=== PATIENT | female | born 1940 | race Caucasian/White ===

== ENCOUNTER 2018-02-27 11:37 | Emergency (ER) | payer OTHER ==
[2018-02-27 12:40] LABS: Absolute Lymphocytes (CBC) 2.2 K/uL (0.7-4.9); Absolute Monocytes 0.7 K/uL (0.1-1.3); Absolute Neutrophil 4.6 K/uL (1.8-8.0); Basophils % 0.9 % (0-1.3); Eosinophils % 4.4 % (0-4.4); Hematocrit 43.9 % (36.0-45.0); Lymphocytes % 27.8 % (15.3-44.8); MCH 28.6 pg (27.0-35.0); MPV 9.6 fL (7.6-11.3); Monocytes % 9.4 % (3.3-12.3); RBC Red Blood Cell Count 5.04 M/uL (3.86-4.86)
--- NOTE | 2018-02-27 13:40 | EDPHYS ---
Physician Documentation [facility] Name: Terry Villar Age: 77 yrs Sex: Female : 1940 Arrival Date: 02/27/2018 Time: 11:40 Bed 2 Private MD: Madi Lynch V ED Physician Florian Meeks HPI: 02/27 13:49 This 77 yrs old Female presents to ER via Ambulatory with complaints of Chest gs Pain. 13:49 The patient or guardian reports chest pain that is located primarily in the anterior gs chest wall. Onset: today. The pain does not radiate. Associated signs and symptoms: Pertinent negatives: shortness of breath. The chest pain is described as dull. Duration: The patient or guardian reports a single episode, that lasted 5 minute(s). Modifying factors: The symptoms are alleviated by nothing. the symptoms are aggravated by nothing. Severity of pain: At its worst the pain was moderate in the emergency department the pain has resolved. The patient has experienced similar episodes in the past, a few times. Historical: - Allergies: 11:44 Hydrocodone-Acetaminophen; hb 11:44 prefers to take no narcs...make her ill; hb - Home Meds: 11:44 aspirin 81 mg Oral chew [Active]; Atenolol Oral [Active]; Diltiazem Oral [Active]; hb niacin 50 mg Oral tab [Active]; Prilosec Oral [Active]; - PMHx: 11:44 Hypertension; hb - Immunization history:: Adult Immunizations up to date. - Social history:: Smoking status: Patient/guardian denies using tobacco. ROS: 13:49 All other systems are negative. gs Exam: 12:12 ECG was reviewed by the Attending Physician. gs 13:49 Head/Face: Normocephalic, atraumatic. Eyes: Pupils equal round and reactive to light, gs extra-ocular motions intact. Lids and lashes normal. Conjunctiva and sclera are non-icteric and not injected. Cornea within normal limits. Periorbital areas with no swelling, redness, or edema. ENT: Nares patent. No nasal discharge, no septal abnormalities noted. Tympanic membranes are normal and external auditory canals are clear. Oropharynx with no redness, swelling, or masses, exudates, or evidence of obstruction, uvula midline. Mucous membranes moist. Neck: Trachea midline, no thyromegaly or masses palpated, and no cervical lymphadenopathy. Supple, full range of motion without nuchal rigidity, or vertebral point tenderness. No Meningismus. Chest/axilla: Normal chest wall appearance and motion. Nontender with no deformity. No lesions are appreciated. Cardiovascular: Regular rate and rhythm with a normal S1 and S2. No gallops, murmurs, or rubs. Normal PMI, no JVD. No pulse deficits. Respiratory: Lungs have equal breath sounds bilaterally, clear to auscultation and percussion. No rales, rhonchi or wheezes noted. No increased work of breathing, no retractions or nasal flaring. Abdomen/GI: Soft, non-tender, with normal bowel sounds. No distension or tympany. No guarding or rebound. No evidence of tenderness throughout. Back: No spinal tenderness. No costovertebral tenderness. Full range of motion. Skin: Warm, dry with normal turgor. Normal color with no rashes, no lesions, and no evidence of cellulitis. MS/ Extremity: Pulses equal, no cyanosis. Neurovascular intact. Full, normal range of motion. Neuro: Awake and alert, GCS 15, oriented to person, place, time, and situation. Cranial nerves II-XII grossly intact. Motor strength 5/5 in all extremities. Sensory grossly intact. Cerebellar exam normal. Normal gait. 13:49 Constitutional: The patient appears alert, awake. Vital Signs: 11:45 BP 162 / 69; Pulse 78; Resp 16; Temp 97.1; Pulse Ox 97% on R/A; Weight 93.89 kg; Height hb 5 ft. 5 in. (165.10 cm); Pain 3/10; 13:44 BP 161 / 71; Pulse 81; Resp 16; Temp 97.1; Pulse Ox 100% on R/A; la1 13:56 BP 160 / 74; Pulse 82; Resp 19; Pulse Ox 100% on R/A; la1 11:45 Body Mass Index 34.45 (93.89 kg, 165.10 cm) hb MDM: 12:15 Patient medically screened. gs 13:49 Differential diagnosis: acute myocardial infarction, chest wall pain, congestive heart gs failure pneumonia. Data reviewed: vital signs, nurses notes, and as a result, I will discharge patient. 13:49 Counseling: I had a detailed discussion with the patient and/or guardian regarding: lab results, radiology results, the need for outpatient follow up, a rn mental health. 02/27 12:23 Order name: Basic Metabolic Panel; Complete Time: 12:59 02/27 12:23 Order name: CBC with Diff; Complete Time: 12:59 02/27 12:04 Order name: EKG; Complete Time: 12:04 [facility] 02/27 12:04 Order name: EKG - Nurse/Tech; Complete Time: 12:04 [facility] 02/27 12:23 Order name: Troponin (emerg Dept Use Only); Complete Time: 12:59 02/27 12:23 Order name: XRAY Chest (1 view) 02/27 13:39 Interpretation: No acute disease except: cardiomegally. 02/27 12:23 Order name: Cardiac monitoring; Complete Time: 12:26 02/27 12:23 Order name: IV Saline Lock; Complete Time: 12: 02/27 12:23 Order name: Labs collected and sent; Complete Time: 12: 02/27 12:23 Order name: O2 Per Protocol; Complete Time: 12: 02/27 12:23 Order name: O2 Sat Monitoring; Complete Time: 12: EC:12 Rate is 73 beats/min. Rhythm is regular. UT interval is prolonged. QRS interval is gs normal. T waves are Normal. No ST changes noted. Clinical impression: Abnormal EKG without significant change and 1st degree heart block. Interpreted by me. Administered Medications: No medications were administered Disposition: 02/27/18 13:40 Discharged to Home. Impression: Chest pain, unspecified. - Condition is Stable. - Discharge Instructions: Nonspecific Chest Pain. - Medication Reconciliation Form, Thank You Letter, Antibiotic Education, Prescription Opioid Use form. - Follow up: Private Physician; When: 2 - 3 days; Reason: Re-evaluation by your physician. - Problem is new. - Symptoms are resolved. Signatures: Dispatcher [employer] EDMS Jacek Hicks RN RN la1 Shabana Hughes RN RN Florian Meeks MD MD
--- NOTE | 2018-02-27 13:40 | ER ---
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 Pain radiated to right side of neck. Denies nausea/SOB/cough. Transition of care: patient was not received from another setting of care. Onset of symptoms was February 27, 2018. Initial Sepsis Screen: Does the patient meet any 2 criteria? No. Patient's initial sepsis screen is negative. Does the patient have a suspected source of infection? No. Patient's initial sepsis screen is negative. Care prior to arrival: None. 11:42 Method Of Arrival: Ambulatory hb 11:42 Acuity: BENITO 3 hb Historical: - Allergies: 11:44 Hydrocodone-Acetaminophen; hb 11:44 prefers to take no narcs...make her ill; hb - Home Meds: 11:44 aspirin 81 mg Oral chew [Active]; Atenolol Oral [Active]; Diltiazem Oral [Active]; hb niacin 50 mg Oral tab [Active]; Prilosec Oral [Active]; - PMHx: 11:44 Hypertension; hb - Immunization history:: Adult Immunizations up to date. - Social history:: Smoking status: Patient/guardian denies using tobacco. Screenin:03 Abuse screen: Denies threats or abuse. Nutritional screening: No deficits noted. la1 Tuberculosis screening: No symptoms or risk factors identified. Fall Risk None identified. Assessment: 12:01 General: Appears in no apparent distress. Behavior is calm, cooperative. Pain: Denies la1 pain. Pain: Complains of pain in Pt reports pain that started 30 minutes ago and lasted 5 minutes, pain was sharp, midsternal, and radiated to the ride side of her neck. Neuro: Level of Consciousness is awake, alert, obeys commands, Oriented to person, place, time, situation. Cardiovascular: Heart tones S1 S2 present Capillary refill < 3 seconds Patient's skin is warm and dry. Rhythm is sinus rhythm with 1st degree heart block. Respiratory: Airway is patent Respiratory effort is even, unlabored, Respiratory pattern is regular, symmetrical, Breath sounds are clear bilaterally. GI: No signs and/or symptoms were reported involving the gastrointestinal system. : No signs and/or symptoms were reported regarding the genitourinary system. Vital Signs: 11:45 BP 162 / 69; Pulse 78; Resp 16; Temp 97.1; Pulse Ox 97% on R/A; Weight 93.89 kg; Height hb 5 ft. 5 in. (165.10 cm); Pain 3/10; 13:44 BP 161 / 71; Pulse 81; Resp 16; Temp 97.1; Pulse Ox 100% on R/A; la1 13:56 BP 160 / 74; Pulse 82; Resp 19; Pulse Ox 100% on R/A; la1 11:45 Body Mass Index 34.45 (93.89 kg, 165.10 cm) hb ED Course: 11:40 Patient arrived in ED. rg4 11:40 Madi Lynch MD is Private Physician. rg4 11:44 Triage completed. hb 11:45 Arm band placed on right wrist. hb 11:46 Jacek Hicks, EDGAR is Primary Nurse. la1 11:47 Florian Meeks MD is Attending Physician. gs 11:58 Initial lab(s) drawn, by me, sent to lab. Inserted saline lock: 22 gauge in left hj antecubital area, using aseptic technique. Blood collected. 12:03 Placed in gown. Bed in low position. Call light in reach. director of marketing operations on. Pulse ox la1 on. NIBP on. 12:03 No provider procedures requiring assistance completed. Patient maintains SpO2 la1 saturation greater than 95% on room air. 13:13 X-ray completed. Portable x-ray completed in exam room. Patient tolerated procedure la2 well. 13:16 XRAY Chest (1 view) In Process Unspecified. EDMS 13:57 IV discontinued, intact, bleeding controlled, No redness/swelling at site. Pressure la1 dressing applied. Administered Medications: No medications were administered Outcome: 13:40 Discharge ordered by . gs 13:57 Discharged to home ambulatory. la1 13:57 Condition: stable 13:57 Discharge instructions given to patient, Instructed on discharge instructions, follow up and referral plans. medication usage, Demonstrated understanding of instructions, follow-up care. 13:57 Patient left the ED. la1 Signatures: Dispatcher [employer] EDMS Jacek Hicks RN RN la1 Gautam Koenig RN RN hj Baxter, Heather, RN RN hb Garcia, Rubi rg4 Florian Meeks MD MD Kaleigh Skaggs la2
[2018-02-27 14:10] VITALS: TEMP 97.1
[2018-02-27 14:11] VITALS: O2SAT 100
[2018-02-27 14:12] VITALS: BP 160/74
--- NOTE | 2018-02-27 15:57 | RAD REPORT ---
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 COMPARISON: March 2012 TECHNIQUE: AP portable chest image was obtained 1312 hours . FINDINGS: No peripheral mass or consolidation. No significant or failure finding. Left base assessme nt is limited. Heart and vasculature are normal. No measurable pleural effusion and no pneumothorax. No gross bony abnormality seen. No acute aortic findings suspected. IMPRESSION: No acute cardiopulmonary process. Left lung base assessment is limited.
--- NOTE | 2018-02-28 07:18 | EKG ---
Test Date: 2018-02-27 Test Time: 11:51:42 Thermodynamic Physicist: LA MEASUREMENT RESULTS: Intervals: Rate: 73 MA: 210 QRSD: 100 QT: 422 QTc: 464 [place]: P: 53 MA: 210 QRS: 14 T: 41 INTERPRETIVE STATEMENTS: Sinus rhythm with 1st degree AV block Otherwise normal ECG Compared to ECG 01/31/2013 15:22:20 T-wave abnormality no longer present Prolonged QT interval no longer present Electronically Signed On 02-28-18 07:17:32 CDT by Federico Julian
== END 2018-02-27 13:57 | disposition home or self-care (01) ==
LOC: ER 11:37
DX: R07.9 Chest pain, unspecified (principal); I10 Essential (primary) hypertension; Z79.82 Long term (current) use of aspirin; Z88.5 Allergy status to narcotic agent
CPT/HCPCS: 36415; 71045; 80048; 84484; 85025; 93005; 99285

== ENCOUNTER 2018-11-21 08:54 | Day surgery (SDC) | payer OTHER ==
[2018-11-21 09:14] LABS: Absolute Lymphocytes (CBC) 1.5 K/uL (0.7-4.9); Absolute Monocytes 0.5 K/uL (0.1-1.3); Absolute Neutrophil 3.5 K/uL (1.8-8.0); Basophils % 0.6 % (0-1.3); Eosinophils % 4.8 % (0-4.4); Hematocrit 44.7 % (36.0-45.0); Lymphocytes % 25.4 % (15.3-44.8); MPV 9.6 fL (7.6-11.3); Monocytes % 8.6 % (3.3-12.3); RBC Red Blood Cell Count 5.11 M/uL (3.86-4.86)
[2018-11-21 09:28] LABS: Potassium 3.8 mmol/L (3.5-5.1)
--- NOTE | 2018-11-21 09:40 | RAD REPORT ---
EXAM DESCRIPTION: Bridgett Le (2 Views)11/21/2018 8:44 am CLINICAL HISTORY: Preop COMPARISON: January 2018 FINDINGS: The lungs appear clear of acute infiltrate. The heart is mildly enlarged IMPRESSION: No acute abnormalities displayed
[2018-11-21] MEDS ORDERED: Ringers Lactate 1,000 ML IV ONE ×2 (10:10→10:21)
[2018-11-21] MEDS ORDERED: MIDAZOLAM HCL 2 MG/2 ML INJ ONE (10:38)
[2018-11-21] MEDS ORDERED: FENTANYL CITR 100 MCG/2 ML ONE (10:51)
[2018-11-21] MEDS ORDERED: PROPOFOL 200 MG/20 ML VIAL IV ONE (10:51)
[2018-11-21] MEDS ORDERED: ONDANSETRON 4 MG/2 ML VIAL ONE (10:52)
[2018-11-21] MEDS ORDERED: LIDOCAINE 1% MPF 2 ML AMPULE ONE (10:52)
[2018-11-21] MEDS ORDERED: BUPIVACAINE 0.5% PF 10 ML VIAL ONE (10:52)
[2018-11-21] MEDS ORDERED: CEFAZOLIN 1GM (PREMIX IV) 1 GM/50 ML BAG ONE (11:01)
--- NOTE | 2018-11-21 11:23 | P.BOP ---
Preoperative diagnosis: right first medial toe ulcerated mass 2.5 x 2.5 cm Postoperative diagnosis: same Primary procedure: Wide excision of right first medial toe ulcerated mass 2.5 x 2.5 cm Estimated blood loss: <5cc Specimen: right first medial toe ulcerated mass Findings: right first medial toe ulcerated mass 2.5 x 2.5 cm mucous secretion Anesthesia: MAC Complications: None Transferred to: Recovery Room Condition: Good
--- NOTE | 2018-11-21 11:43 | EKG ---
Test Date: 2018-11-21 Test Time: 08:37:14 Devops Engineer: KATH MEASUREMENT RESULTS: Intervals: Rate: 56 KS: 236 QRSD: 98 QT: 488 QTc: 470 [place]: P: 65 KS: 236 QRS: 35 T: 133 INTERPRETIVE STATEMENTS: Sinus bradycardia with 1st degree AV block Nonspecific T wave abnormality Prolonged QT Abnormal ECG Compared to ECG 02/27/2018 11:51:42 T-wave abnormality now present Prolonged QT interval now present Sinus rhythm no longer present Electronically Signed On 11-21-18 11:42:42 FINANCIAL REPORTING CONSULTANT by Darek Chapman
[2018-11-21] MEDS ORDERED: KETOROLAC 30 MG/ML INJ ONE (12:32)
[2018-11-21 13:47] VITALS: TEMP 96.6
[2018-11-21 13:48] VITALS: BP 131/58; O2SAT 95
--- NOTE | 2018-11-21 22:19 | OP ---
Date of Procedure: 11/21/2018 Surgeon: Gautam Fong MD Preoperative Diagnosis: Right first medial toe ulcerated mass, 2.5 x 2.5 cm. Postoperative Diagnosis: Right first medial toe ulcerated mass, 2.5 x 2.5 cm. Procedure: Wide excision of right medial toe ulcerative mass, 2.5 x 2.5 cm. Estimated Blood Loss: Less than 5 cc. Specimen: Right first medial toe ulcerative mass. Findings: Mucus producing mass, ulcerated on the right first medial area, bone is not involved. Anesthesia: MAC plus local. Indications: This is a case of a 78-year-old patient, who comes to us with a mass in the first toe, increasing in size. It has become ulcerated. She was told in the past, she has a mucous mass in thomas t region, needs to be excised, now she took time to have it excised since it is getting bigger and mo re tender. The benefits, alternatives, and risks of excision were fully explained, which include but are not limited to infection, bleeding, damage to adjacent structures, anesthesia complication, nonh ealing wound, LA, and even . She also understands this may not relieve her symptoms. She might need more than one surgical intervention. She may require wound care. The area of concern was marlene beatriz by me and the patient in the holding room. Description Of Procedure: The patient was brought to the operating room, placed in supine position. Anesthesia was given without complication. The right foot was prepped and draped in a sterile fashi on. Local anesthesia was applied after time-out was called. After that, I proceeded to make a wide excision of that mass, goes all way down to tendon but does not expose bone. The mass was then compl etely excised. This is just impossible to close, this is too wide, so we proceeded an irrigate the a warren and packed with wet-to-dry dressing. We are going to let that close by secondary intention. The patient tolerated the procedure well. The patient was sent to recovery in stable condition. Disposition: Home. Activity: As tolerated. No heavy lifting. Followup: Follow up in my office in 1 week. Call for appointment [phone]. A wet-to-dry to the right medial toe daily or she can also have the option of Bactroban twice a day a nd keep the area covered with sterile dressings. 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 Medications: Include a Bactroban and also she requests, specifically Toradol by mouth since the hydr ocodone and some other narcotics make her sick, nausea and vomiting. She tried Toradol before, she h as no allergies to it and she wants that again. YAKELNI/DELTA Voice ID: [id number] Report ID: [id number]
== END 2018-11-21 13:14 | disposition home or self-care (01) ==
LOC: OR 08:54
PROVIDERS: ATTEND Surgery
PROC: 0JBQ0ZZ Excision of Right Foot Subcutaneous Tissue and Fascia, Open Approach (ICD-10-PCS; principal; 2018-11-21 10:30)
DX: R22.41 Localized swelling, mass and lump, right lower limb (principal); I10 Essential (primary) hypertension; K21.9 Gastro-esophageal reflux disease without esophagitis; Z88.5 Allergy status to narcotic agent; Z86.73 Personal history of transient ischemic attack (TIA), and cerebral infarction without residual deficits; Z87.891 Personal history of nicotine dependence; Z80.0 Family history of malignant neoplasm of digestive organs; Z83.3 Family history of diabetes mellitus; Z82.49 Family history of ischemic heart disease and other diseases of the circulatory system
CPT/HCPCS: 11423; 36415; 71046; 80048; 85025; 88304; 93005; J0690; J2001; J2250; J2405; J2704; J3010; 88305

== ENCOUNTER 2021-09-22 19:24 | Emergency (ER) | payer OTHER, SELFPAY ==
--- OUTSIDE RECORDS SUMMARY | 2021-09-22 19:26 | XMS REPORT | Continuity of Care Document ---
:1940 Author Organization [facility] t Address 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 [facility] Allergies, Adverse Reactions, Alerts Allergy Allergy Status Severity Reaction(s) Onset Inactive Treating Comm ents Source Name Type Date Date Clinician Demerol Adverse Active Info Not [facility] Reaction Available [facility] ent [facility] Darvon Adverse Active Info Not [facility] Reaction Available [facility] ent [facility] Medications Ordered Filled Start Stop Current Ordering Indication Dosage Frequency Signature Comments Components Source Medication Medication Date Date Medication? Clinician (SIG) Name Name Diltiazem Diltiazem Yes Toni [address] [facility] CD CD 07-05 [place] [facility] - 00:[facility]: [facility] 00 [facility] Clinics Aspir-81 Aspir-81 2017-0 Yes Toni [address] [facility] 07-05 [place] [facility] - [facility]: [facility] 00 [facility]ics Atenolol Atenolol Yes Toni [address] [facility] 07-05 [place] [facility] - [facility]: [facility] 00 [facility] Potassium Potassium Yes Toni [address] [facility] Gluconate Gluconate [place] [facility] Clinics Prilosec Prilosec Yes Toni as [facility] [place] directed [facility] Clinics Calcium Calcium Yes Toni not [facility] [place] defined [facility] Cartia XT Cartia XT Yes Toni TAKE [address] [facility] [place] CAPSULE BY [facility] - MOUTH ONCE Memoria DAILY [facility] ent [facility] Anastrozole Anastrozole Yes Toni [address] [facility] [place] [facility] Procedures This patient has no known procedures. Encounters Start End Encounter Admission Attending Care Care Encounter Source Date/Time Date/Time Type Type Clinicians Facility Department ID 2020-03-21 2020-03-21 Outpatient Irwin Summers [id number] [facility] 09:00:00 09:00[facility]00 [facility] Results This patient has no known results.
[2021-09-22] MEDS ORDERED: NA CHLORIDE 0.9% 1,000 ML ONE (22:03)
[2021-09-22] MEDS ORDERED: DICYCLOMINE HCL 20 MG/2 ML AMP IM ONE (22:03)
[2021-09-22] MEDS ORDERED: ONDANSETRON 4 MG/2 ML VIAL ONE (22:03)
[2021-09-22] MEDS ORDERED: FAMOTIDINE 20 MG/2 ML VIAL IV ONE (22:28)
[2021-09-22 22:33] LABS: Albumin 3.7 g/dL (3.4-5.0); Bilirubin Direct 0.2 mg/dL (0-0.2); Bilirubin Total 0.6 mg/dL (0.2-1.0); Potassium 3.7 mmol/L (3.5-5.1); Protein, Total 7.7 g/dL (6.4-8.2)
[2021-09-22 22:37] LABS: Absolute Lymphocytes (CBC) 0.5 K/uL (0.7-4.9); Basophils % 0.2 % (0-1.3); Hematocrit 43.5 % (36.0-45.0); Lymphocytes % 2.8 % (15.3-44.8); MPV 9.2 fL (7.6-11.3); RBC Red Blood Cell Count 4.95 M/uL (3.86-4.86)
[2021-09-22 23:41] LABS: Blood Morphology Comment NOT SEEN (NOT SEEN); Platelet Estimate ADEQ
--- NOTE | 2021-09-23 00:23 | EDPHYS ---
Physician Documentation [facility] Name: Terry Villar Age: 81 yrs Sex: Female : 1940 Arrival Date: 09/22/2021 Time: 19:27 Bed 2 Private MD: ED Physician Graham Patel HPI: 09/22 22:35 This 81 yrs old Female presents to ER via Wheelchair with complaints of Nausea/Vomiting.jr8 22:35 This is a 81-year-old female patient that presented to the emergency room with sudden jr8 onset of nausea vomiting couple hours prior to arrival. Patient stated that she has had multiple episodes of vomiting since then. Also complains of upper abdominal cramping. Denies any fever or diarrhea at this time. Has been stated that they ate the same thing tonight and then he feels fine. Denies any other sick contacts.. Historical: - Allergies: 20:00 Hydrocodone-Acetaminophen; ld1 20:00 prefers to take no narcs...make her ill; ld1 - Home Meds: 20:00 aspirin 81 mg Oral chew [Active]; niacin 50 mg Oral tab [Active]; Prilosec Oral ld1 [Active]; 22:48 atenolol 50 mg oral tab 1 tab once daily [Active]; diltiazem HCl 240 mg oral CDER 1 cap df1 once daily [Active]; anastrozole 1 mg oral tab 1 tab once daily [Active]; - PMHx: 20:00 Hypertension; Cancer; ld1 22:48 Hypothyroidism; shingles; df1 - PSHx: 20:00 Appendectomy; ld1 22:48 bilateral knee replacement; Total abdominal hysterectomy; masectomy; df1 - Immunization history:: Adult Immunizations up to date, Client reports receiving the 2nd dose of the Covid vaccine. - Social history:: Smoking status: Patient denies any tobacco usage or history of. Patient/guardian denies using alcohol. ROS: 22:35 Eyes: Negative for injury, pain, redness, and discharge, ENT: Negative for injury, jr8 pain, and discharge, Neck: Negative for injury, pain, and swelling, Cardiovascular: Negative for chest pain, palpitations, and edema, Respiratory: Negative for shortness of breath, cough, wheezing, and pleuritic chest pain, Back: Negative for injury and pain, MS/Extremity: Negative for injury and deformity, Skin: Negative for injury, rash, and discoloration, Neuro: Negative for headache, weakness, numbness, tingling, and seizure. 22:35 Abdomen/GI: Positive for abdominal pain, nausea and vomiting, Negative for diarrhea, abdominal distension, hematemesis, black/tarry stool, rectal pain, rectal bleeding, bowel incontinence, flatulence. Exam: 22:35 Cardiovascular: Regular rate and rhythm with a normal S1 and S2. No gallops, murmurs, jr8 or rubs. Normal PMI, no JVD. No pulse deficits. Respiratory: Lungs have equal breath sounds bilaterally, clear to auscultation and percussion. No rales, rhonchi or wheezes noted. No increased work of breathing, no retractions or nasal flaring. Abdomen/GI: Soft, non-tender, with normal bowel sounds. No distension or tympany. No guarding or rebound. No evidence of tenderness throughout. Back: No spinal tenderness. No costovertebral tenderness. Full range of motion. Skin: Warm, dry with normal turgor. Normal color with no rashes, no lesions, and no evidence of cellulitis. MS/ Extremity: Pulses equal, no cyanosis. Neurovascular intact. Full, normal range of motion. Neuro: Awake and alert, GCS 15, oriented to person, place, time, and situation. Cranial nerves II-XII grossly intact. Motor strength 5/5 in all extremities. Sensory grossly intact. 22:35 Constitutional: The patient appears alert, awake, obviously ill, uncomfortable. Vital Signs: 19:58 BP 146 / 118; Pulse 86; Resp 18; Temp 98.3(TE); Pulse Ox 97% on R/A; Weight 98.43 kg; ld1 Height 5 ft. 5 in. (165.10 cm); Pain 0/10; 23:41 Pulse 83; Resp 16; Pulse Ox 96% on R/A; tw5 09/23 00:00 BP 135 / 95; Pulse 86; Resp 18; Pulse Ox 100% on R/A; df1 09/22 19:58 Body Mass Index 36.11 (98.43 kg, 165.10 cm) ld1 MDM: 09/22 21:48 Patient medically screened. jr8 09/23 00:20 Data reviewed: vital signs, nurses notes, lab test result(s), radiologic studies, CT jr8 scan. Data interpreted: Pulse oximetry: on room air is 96 %. Interpretation: normal. Counseling: I had a detailed discussion with the patient and/or guardian regarding: the historical points, exam findings, and any diagnostic results supporting the discharge/admit diagnosis, lab results, radiology results, the need for outpatient follow up, a family practitioner, to return to the emergency department if symptoms worsen or persist or if there are any questions or concerns that arise at home. Response to treatment: the patient's symptoms have resolved after treatment. ED course: Reevaluated patient after having nausea medicine. Patient has had no more episodes of nausea or vomiting. Able to tolerate p.o. fluids at this time. Reexamination of her abdomen does not show any acute abdominal pain or tenderness at this time. Hemodynamically stable otherwise. Recommended close follow-up with her primary care and if she were to have any change in symptoms or abdominal pain to immediately come back for further evaluation. Patient good with this and will follow up or come back if needed.. 09/22 21:57 Order name: Basic Metabolic Panel; Complete Time: 22:37 jr8 09/22 21:57 Order name: CBC with Diff; Complete Time: 23:50 jr8 09/22 21:57 Order name: Hepatic Function; Complete Time: 22:37 jr8 09/22 21:57 Order name: Lipase; Complete Time: 22:37 jr8 09/22 22:17 Order name: CT Abd/Pelvis - IV Contrast Only [facility] 09/22 22:39 Order name: Manual Differential; Complete Time: 23:50 EDMS 09/22 21:57 Order name: IV Saline Lock; Complete Time: 22:01 jr8 09/22 21:57 Order name: Labs collected and sent; Complete Time: 22:01 jr8 09/22 21:57 Order name: EKG; Complete Time: 21:58 jr8 09/22 21:57 Order name: EKG - Nurse/Tech; Complete Time: 22:48 jr8 Administered Medications: 09/22 22:12 Drug: Zofran (Ondansetron) 4 mg Route: IVP; Site: right antecubital; df1 09/23 00:43 Follow up: Response: Nausea is decreased df1 09/22 22:12 Drug: Bentyl (dicyclomine) 20 mg Route: IM; Site: right gluteus; df1 09/23 00:43 Follow up: Response: Pain is decreased df1 09/22 22:12 Drug: NS 0.9% 1000 ml Route: IV; Rate: 1000 ml; Site: right antecubital; df1 09/23 00:43 Follow up: IV Status: Completed infusion; IV Intake: 1000ml df1 09/22 22:47 Drug: Pepcid (famotidine) 20 mg Route: IVP; Site: right antecubital; df1 09/23 01:04 Follow up: Response: No adverse reaction tw5 Disposition Summary: 09/23/21 00:22 Discharge Ordered Location: Home jr8 Problem: new jr8 Symptoms: are resolved jr8 Condition: Stable jr8 Diagnosis - Vomiting jr8 Followup: jr8 - With: Private Physician - When: 2 - 3 days - Reason: Recheck today's complaints, Continuance of care, Re-evaluation by your physician Discharge Instructions: - Discharge Summary Sheet jr8 - Vomiting, Adult jr8 Forms: - Medication Reconciliation Form jr8 - Thank You Letter jr8 - Antibiotic Education jr8 - Prescription Opioid Use jr8 Prescriptions: - Zofran 4 mg Oral Tablet - take 1 tablet by ORAL route every 12 hours As needed; 20 tablet; Refills: 0, jr8 Product Selection Permitted Addendum: 09/24/2021 09:23 Co-signature as Attending Physician, Graham Patel MD I agree with the assessment and c gore plan of care. Signatures: Dispatcher [employer] Graham Begum MD MD cha Roszak, Josh, PA PA jr8 Adelaida Doe, RN RN ld1 Jackie Gregory df1 Neisha Najera tw5 Corrections: (The following items were deleted from the chart) 09/22 20:01 20:00 PMHx: Cancer in situ of urinary bladder; ld1 ld1 22:50 20:00 Home Meds: Atenolol Oral; ld1 df1 22:50 20:00 Home Meds: Diltiazem Oral; ld1 df1
--- NOTE | 2021-09-23 00:23 | ER ---
Nurse's Notes [facility] Name: Terry Villar Age: 81 yrs Sex: Female : 1940 Arrival Date: 09/22/2021 Time: 19:27 Bed 2 Private MD: Diagnosis: Vomiting Presentation: 09/22 19:58 Chief complaint: Patient states: About two hours ago I started vomiting and feeling ld1 very queasy. Coronavirus screen: At this time, the client does not indicate any symptoms associated with coronavirus-19. Ebola Screen: No symptoms or risks identified at this time. Initial Sepsis Screen: Does the patient meet any 2 criteria? No. Patient's initial sepsis screen is negative. Does the patient have a suspected source of infection? No. Patient's initial sepsis screen is negative. Risk Assessment: Do you want to hurt yourself or someone else? Patient reports no desire to harm self or others. Onset of symptoms was September 22, 2021. 19:58 Method Of Arrival: Wheelchair ld1 19:58 Acuity: BENITO 3 ld1 Triage Assessment: 20:00 General: Appears in no apparent distress. comfortable, Behavior is calm, cooperative, ld1 appropriate for age. Pain: Denies pain. EENT: No signs and/or symptoms were reported regarding the EENT system. Neuro: Level of Consciousness is awake, alert, obeys commands, Oriented to person, place, time, situation, Appropriate for age. Cardiovascular: Capillary refill < 3 seconds Patient's skin is warm and dry. Respiratory: Airway is patent Respiratory effort is even, unlabored, Respiratory pattern is regular, symmetrical. GI: Abdomen is round non-distended. : No signs and/or symptoms were reported regarding the genitourinary system. Derm: No signs and/or symptoms reported regarding the dermatologic system. Musculoskeletal: No signs and/or symptoms reported regarding the musculoskeletal system. Historical: - Allergies: 20:00 Hydrocodone-Acetaminophen; ld1 20:00 prefers to take no narcs...make her ill; ld1 - Home Meds: 20:00 aspirin 81 mg Oral chew [Active]; niacin 50 mg Oral tab [Active]; Prilosec Oral ld1 [Active]; 22:48 atenolol 50 mg oral tab 1 tab once daily [Active]; diltiazem HCl 240 mg oral CDER 1 cap df1 once daily [Active]; anastrozole 1 mg oral tab 1 tab once daily [Active]; - PMHx: 20:00 Hypertension; Cancer; ld1 22:48 Hypothyroidism; shingles; df1 - PSHx: 20:00 Appendectomy; ld1 22:48 bilateral knee replacement; Total abdominal hysterectomy; masectomy; df1 - Immunization history:: Adult Immunizations up to date, Client reports receiving the 2nd dose of the Covid vaccine. - Social history:: Smoking status: Patient denies any tobacco usage or history of. Patient/guardian denies using alcohol. Screenin:50 Abuse screen: Denies threats or abuse. Nutritional screening: No deficits noted. df1 Tuberculosis screening: No symptoms or risk factors identified. Fall Risk None identified. Assessment: 23:41 General: Patient given warm blanket and pillow. lights turned off per patient request tw5 for comfort. . Neuro: Level of Consciousness is awake, alert, obeys commands. Respiratory: Airway is patent Trachea midline Respiratory effort is even, unlabored. Vital Signs: 19:58 BP 146 / 118; Pulse 86; Resp 18; Temp 98.3(TE); Pulse Ox 97% on R/A; Weight 98.43 kg; ld1 Height 5 ft. 5 in. (165.10 cm); Pain 0/10; 23:41 Pulse 83; Resp 16; Pulse Ox 96% on R/A; tw5 09/23 00:00 BP 135 / 95; Pulse 86; Resp 18; Pulse Ox 100% on R/A; df1 09/22 19:58 Body Mass Index 36.11 (98.43 kg, 165.10 cm) ld1 ED Course: 09/22 19:27 Patient arrived in ED. bp1 20:00 Triage completed. ld1 20:00 Arm band placed on right wrist. ld1 21:39 Jackie Gregory is Primary Nurse. df1 21:48 Chago Powell PA is PHCP. jr8 21:48 Graham Patel MD is Attending Physician. jr8 22:01 Basic Metabolic Panel Sent. df1 22:01 CBC with Diff Sent. df1 22:01 Hepatic Function Sent. df1 22:01 Lipase Sent. df1 22:01 Inserted saline lock: 20 gauge in right antecubital area, using aseptic technique. df1 22:47 CT Abd/Pelvis - IV Contrast Only Sent. df1 22:50 Patient has correct armband on for positive identification. Placed in gown. Bed in low df1 position. Call light in reach. Side rails up X 1. Adult w/ patient. Pulse ox on. NIBP on. 22:50 No provider procedures requiring assistance completed. df1 23:03 CT Abd/Pelvis - IV Contrast Only In Process Unspecified. EDMS 09/23 00:42 IV discontinued, intact, bleeding controlled, No redness/swelling at site. Pressure df1 dressing applied. Administered Medications: 09/22 22:12 Drug: Zofran (Ondansetron) 4 mg Route: IVP; Site: right antecubital; df1 09/23 00:43 Follow up: Response: Nausea is decreased df1 09/22 22:12 Drug: Bentyl (dicyclomine) 20 mg Route: IM; Site: right gluteus; df1 09/23 00:43 Follow up: Response: Pain is decreased df1 09/22 22:12 Drug: NS 0.9% 1000 ml Route: IV; Rate: 1000 ml; Site: right antecubital; df1 09/23 00:43 Follow up: IV Status: Completed infusion; IV Intake: 1000ml df1 09/22 22:47 Drug: Pepcid (famotidine) 20 mg Route: IVP; Site: right antecubital; df1 09/23 01:04 Follow up: Response: No adverse reaction tw5 Intake: 00:43 IV: 1000ml; Total: 1000ml. df1 Outcome: 00:22 Discharge ordered by MD. alford 00:42 Discharged to home ambulatory. df1 00:42 Condition: stable 00:42 Discharge instructions given to patient, Instructed on discharge instructions, follow up and referral plans. medication usage, Demonstrated understanding of instructions, follow-up care, medications, Prescriptions given X 1. 01:04 Patient left the ED. tw5 Signatures: Dispatcher [employer] EDMS Chago Powell PA PA jr8 Cuca Aguilar Lauren, RN RN [email or web address] Jackie Gregory df1 Neisha Najera tw5 Corrections: (The following items were deleted from the chart) 09/22 20:01 20:00 PMHx: Cancer in situ of urinary bladder; ld1 ld1 22:50 20:00 Home Meds: Atenolol Oral; ld1 df1 22:50 20:00 Home Meds: Diltiazem Oral; ld1 df1
[2021-09-23 01:12] VITALS: TEMP 98.3
[2021-09-23 01:14] VITALS: BP 135/95; O2SAT 100
--- NOTE | 2021-09-23 11:23 | RAD REPORT ---
EXAM DESCRIPTION: CT - Abdomen Pelvis W Contrast - 09/23/2021 6:14 am CLINICAL HISTORY: 81 years, Female, ABD PAIN COMPARISON: None. TECHNIQUE: Contrast-enhanced images of the abdomen and pelvis were performed utilizing 5 mm slice th ickness at 5 mm interval reconstruction from the lung bases to the ischial tuberosities after the adm inistration of IV contrast. In addition multiplanar reformats in the coronal and sagittal plane were obtained and reviewed. This exam was performed according to our departmental dose-optimization protocol, which includes auto mated exposure control, adjustment of the mA and/or kV according to patient size and/or use of iterat carlos reconstruction technique. FINDINGS: The lung bases demonstrate atelectatic changes and/or scarring left posterior CP angle. The liver demonstrate decreased attenuation corresponding to fatty infiltration. Otherwise the liver, gallbladder, pancreas, spleen and adrenal glands demonstrate to be unremarkable, no focal lesions ar e noted. The kidneys demonstrate normal uptake of contrast media. There is a upper pole right renal calculus m easuring 6.3 mm. There is no evidence for hydronephrosis in either kidney. Grossly the unopacified stomach and large bowel demonstrate to be within normal limits. There is mi ld prominence of proximal small bowel loops right flank the maximal diameter of 2.7 cm perhaps just t he possibility of mild ileus. The appendix was not visualized. The urinary bladder demonstrate to be unremarkable. The uterus is absent. There are no adnexal mass es. The aorta demonstrate minimal atherosclerotic disease extending at the aortic bifurcation. Th ere is no retroperitoneal lymphadenopathy. There is no evidence for ascites/or significant abnormal f luid collections. The rest of the soft tissue and bony structures are within normal limits. IMPRESSION: Mild prominence of proximal small bowel loops right flank the maximal diameter of 2.7 cm perhaps suggesting the possibility of mild ileus. Right nephrolithiasis with no hydronephrosis. Status post hysterectomy. Fatty infiltration of the liver. Electronically signed by: Kennedy Apple MD 09/22/2021 11:25 PM MANPOWER DEVELOPMENT SPECIALIST Due to temporary technical issues with the PACS/Fluency reporting system, reports are being signed by the in house radiologists without review as a courtesy to insure prompt reporting. The interpreting radiologist is fully responsible for the content of the report.
--- NOTE | 2021-09-24 08:06 | EKG ---
Test Date: 2021-09-22 Test Time: 22:37:51 Audio Visual Production Specialist: MEASUREMENT RESULTS: Intervals: Rate: 89 VT: 218 QRSD: 96 QT: 412 QTc: 501 [place]: P: 5 VT: 218 QRS: 6 T: 44 INTERPRETIVE STATEMENTS: Sinus rhythm with 1st degree AV block with premature supraventricular complexes Cannot rule out Anterior infarct, age undetermined Abnormal ECG Compared to ECG 07/06/2019 11:53:25 Atrial premature complex(es) now present T-wave abnormality no longer present Possible ischemia no longer present Myocardial infarct finding still present Electronically Signed On 09-24-21 08:03:28 FARM PL[employer]NER by Darek Chapman
== END 2021-09-23 01:04 | disposition home or self-care (01) ==
LOC: ER 19:24
DX: R11.10 Vomiting, unspecified (principal); I10 Essential (primary) hypertension; E03.9 Hypothyroidism, unspecified; Z79.82 Long term (current) use of aspirin; Z88.5 Allergy status to narcotic agent
CPT/HCPCS: 96361; 93005; 85025; 80048; 36415; 80076; 83690; 74177; 96375; 96372; 96374; 99284; Q9967; J0500; J7030; J2405

== ENCOUNTER 2025-08-02 08:58 | Emergency (ER) | payer OTHER ==
--- OUTSIDE RECORDS SUMMARY | 2025-08-02 09:01 | XMS REPORT | Continuity of Care Document ---
Author Name Unknown Address [address] [place] [address] [facility] [place] Address [address] [facility] [address] [place] [address] Care Team Providers Care Bus Assistant Name Role Phone Madi Lynch Attending Clinician Unavailable Problems Condition Name Condition Details Condition Category Status Onset Date Resolution Date Last Treatment Date Treating Clinician Comments Source Urgent desire to urinate Urgent Desire to Urinate Problem Active 2023-11 00:00: 00 [facility] Heartburn Heartburn Problem Active 07-27 00:00: 00 [facility] Hyperthyro idism Hyperthyro idism Problem Active 07-27 00:00: 00 [facility] Essential hypertensi on Essential Hypertensi on Problem Active 07-27 00:00: 00 [facility] 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 Active 2018-11 0 00:00: 00 [facility] Lateral cystocele Lateral Cystocele Problem Active 12-15 00:00: 00 [facility] 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 Problem Active 12-15 00:00: 00 [facility] Genuine stress incontinen ce Genuine Stress Incontinen ce Problem Active 12-15 00:00: 00 [facility] Atrophic vaginitis Atrophic Vaginitis Problem Active 12-15 00:00: 00 [facility] Gynecologi josie examinatio n abnormal Gynecologi josie Examinatio n Abnormal Problem Active 12-15 00:00: 00 [facility] Pain, joint, foot, right Pain, joint, foot, right Diagnosis Active [facility] Pain, joint, hand, right Pain, joint, hand, right Problem Active [facility] 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 Darvon Adverse Reaction Active Info Not Available [facility] Social History Smoking Status Start Date Stop Date Source Former Smoker [facility] Medications Ordered Medication Name Filled Medication Name Start Date Stop Date Current Medication? Ordering Clinician Indication Dosage Frequency Signature (SIG) Comments Components Source Aspir-81 Aspir-81 07-05 00:00: 00 Yes Toni Quezada [address] [facility] Atenolol Atenolol 07-05 00:00: 00 Yes Toni Quezada [address] [facility] Diltiazem CD Diltiazem CD 07-05 00:00: 00 Yes Toni Quezada [address] [facility] Anastrozole Anastrozole Yes Manoj s Quezada [address] [facility] Potassium Gluconate Potassium Gluconate Yes Toni Quezada [address] [facility] Prilosec Prilosec Yes Toni Quezada as directed [facility] Calcium Calcium Yes Toni Quezada not defined [facility] Cartia XT Cartia XT Yes Toni Quezada TAKE 1 CAPSULE BY MOUTH ONCE DAILY [facility] Adult Aspirin EC Low Strength 81 mg tablet,kareen yed release Adult Aspirin EC Low Strength 81 mg tablet,kareen yed release No Adult Aspirin EC Low Strength 81 mg tablet,del ayed release [facility] anastrozole 1 mg tablet 1 mg every day by oral route. anastrozole 1 mg tablet 1 mg every day by oral route. No 1mg Q1D anastrozol e 1 mg tablet 1 mg every day by oral route. [facility] atenolol 100 mg tablet 100 mg every day by oral route. atenolol 100 mg tablet 100 mg every day by oral route. No 100mg Q1D atenolol 100 mg tablet 100 mg every day by oral route. [facility] Calcium 600 + D(3) 600 mg-125 unit tablet Calcium 600 + D(3) 600 mg-125 unit tablet No Calcium 600 + D(3) 600 mg-125 unit tablet [facility] Diltiazem CD 240 mg/24hr capsule,ext ended release 240 mg every day by oral route. Diltiazem CD 240 mg/24hr capsule,ext ended release 240 mg every day by oral route. No 240mg Q1D Diltiazem CD 240 mg/24hr capsule,ex tended release 240 mg every day by oral route. [facility] Macrobid 100 mg capsule Take 1 capsule every 12 hours by oral route for 7 days. Macrobid 100 mg capsule Take 1 capsule every 12 hours by oral route for 7 days. No 1capsul e(s) Q12H Macrobid 100 mg capsule Take 1 capsule every 12 hours by oral route for 7 days. [facility] methimazole 5 mg tablet 5 mg every day by oral route. methimazole 5 mg tablet 5 mg every day by oral route. No 5mg Q1D methimazol e 5 mg tablet 5 mg every day by oral route. [facility] Stool Softener Stool Softener No Stool Softener [facility] Diflucan 150 mg tablet Take 1 tablet every 72 hours by oral route for 4 days. Diflucan 150 mg tablet Take 1 tablet every 72 hours by oral route for 4 days. No 1 Diflucan 150 mg tablet Take 1 tablet every 72 hours by oral route for 4 days. [facility] Vital Signs Vital Name Observation Time Observation Value Comments S ource BP Systolic 2024 00:00:00 130 mm[Hg] [facility] Height 2024 00:00:00 65 [in_i] [facility] BMI (Body Mass Index) 2024 00:00:00 31.3 kg/m2 [facility] Body Weight 2024 00:00:00 188 [lb_av] [facility] BP Diastolic 2024 00:00:00 90 mm[Hg] [facility] Body Weight 2024-07-27 00:00:00 188 [lb_av] [facility] BMI (Body Mass Index) 2024-07-27 00:00:00 31.3 kg/m2 [facility] Height 2024-07-27 00:00:00 65 [in_i] [facility] BP Systolic 2024-07-27 00:00:00 153 mm[Hg] [facility] BP Diastolic 2024-07-27 00:00:00 60 mm[Hg] [facility] Procedures Procedure Date / Time Performed Performing Clinicia n Source Cystoscopy 2024 00:00:00 [facility] - Cataract Surgery 2024-07-24 00:00:00 [facility] Lumpectomy of Left Breast 2018-11-01 00:00:00 [facility] Biopsy of Breast 2007-11-01 00:00:00 [facility] Orthopedic - Knee Replacement 2005-11-01 00:00:00 [facility] Procedure on Knee 2000-11-01 00:00:00 [facility] Cardiac Catheterization 1989-11-01 00:00:00 [facility] Excision of Bilateral Fallopian Tubes and Ovaries 1984-11-01 00:00:00 [facility] Hysterectomy - Vaginal 1979-11-01 00:00:00 [facility] Dilation and Curettage 1972-11-01 00:00:00 [facility] Tonsillectomy 1958-11-01 00:00:00 [facility] Excision of Basal Cell Carcinoma [facility] Procedure on Eye [facility] Pel[facility] Sling [facility] Appendectomy [facility] Encounters Start Date/Time End Date/Time Encounter Type Admission Type Attending [facility] Care Department Encounter ID Source 2021-12-24 10:49:[address] [facility] [id number] [facility] 2021-11-26 13:02:[address] [facility] [id number] [facility] 2021-11-26 11:22:[address] [facility] [id number] [facility] 2024 00:00:00 2024 00:00:00 Beti Rosario MD: [address] [place] [address] [address], [address], [place] [address] , Ph. [email or web address]* [id number] [facility] 2024-07-27 00:00:00 2024-07-27 00:00:00 GUILLE Perea: [address], [address], [place] [address] , Ph. [email or web address]* [id number] [facility] 2020-03-21 09:00:00 2020-03-21 09:00:00 Outpatient [facility] [id number] [facility] Results Test Description Test Time Test Comments Results Result Co mments Source [facility], [id number] 15:53:00* Test Item Value Reference Range Interpretation Comme nts Leukocytes (test code = Leukocytes) Trace Nitrite (test code = Nitrite) positive Urobilinogen (test code = Urobilinogen) Normal Protein (test code = Protein) Negative pH (test code = pH) 6.0 Blood (test code = Blood) Negative Specific Antimony (test code = Specific Antimony) 1.015 Ketone (test code = Ketone) Negative Bilirubin (test code = Bilirubin) 1+ Glucose (test code = Glucose) Negative Appearance (test code = Appearance) Clear Color (test code = Color) Yellow [facility]
[2025-08-02 09:37] LABS: Absolute Lymphocytes (CBC) 1.0 K/uL (0.7-4.9); Hematocrit 42.9 % (36.0-45.0); Hemoglobin 14.2 g/dL (12.0-15.0); MCH 28.6 pg (27.0-35.0); MCHC 33.0 g/dL (32.0-36.0); MCV 86.8 fL (80-100); MPV 8.6 fL (7.6-11.3); Nucleated RBC Absolute Count 0.0 (0-0); Nucleated Red Blood Cells % 0.1 % (0-0); RBC Red Blood Cell Count 4.95 M/uL (3.86-4.86); White Blood Count 9.20 thou/uL (4.3-10.9)
[2025-08-02 09:40] LABS: Platelets, Giant PRESENT; White Blood Cell Scan OK (OK)
[2025-08-02 09:41] LABS: Blood Morphology Comment NOT SEEN (NOT SEEN)
[2025-08-02 09:44] LABS: PT Prothrombin Time 11.9 SECONDS (10-13.0); Protime INR 1.05
--- NOTE | 2025-08-02 09:52 | RAD REPORT ---
EXAMINATION: ONE VIEW CHEST XR CLINICAL INDICATION: Female, 84 years old.,CHEST PAIN TECHNIQUE: Frontal chest projection is submitted. Examination is limited by patient positioning and t echnique. COMPARISON: 06/20/2025 FINDINGS: The lungs are well inflated and clear. No pneumothorax or sizable effusion. The heart is normal in s ize. Mediastinal contours are unremarkable. IMPRESSION: No acute intrathoracic abnormalities.
[2025-08-02 10:04] LABS: Anion Gap 8.2 mEq/L (5.0-15.0); BUN Blood Urea Nitrogen 13.0 mg/dL (7-18); Glucose Level 106.0 mg/dL (74-106); NT PRO-BNP 710.0 pg/mL (<450); Potassium 4.2 mEq/L (3.5-5.1); Troponin High Sensitivity 5.5 pg/mL (<58.9)
--- NOTE | 2025-08-02 11:31 | RAD REPORT ---
EXAM: CT Chest For Pe Angio TECHNIQUE: CT angiogram of the chest was performed following intravenous contrast administration, inc luding sagittal and coronal as well as maximum intensity projection reformats. One or more of the following dose reduction techniques were used: Automated exposure control, adjustment of the mA and k V according to patient size, and iterative reconstruction. Unless otherwise specified, incidental findings do not require dedicated imaging follow-up. INDICATION: [facility] MAIN CHEST PAIN Bed Name: 3 Y COMPARISON: Chest radiograph of the same day. FINDINGS: LINES/TUBES: None. PULMONARY ARTERIES: Main pulmonary arteries are normal in caliber. No filling defects within the pul monary arteries to suggest pulmonary embolus. LUNGS AND AIRWAYS: The lungs and central airways are normal without focal abnormality. Bibasilar atel ectatic changes. PLEURA: No effusion or pneumothorax. HEART AND MEDIASTINUM: The visualized thyroid gland is normal. No mediastinal, hilar, or axillary lym phadenopathy. Heart is unremarkable. No pericardial effusion. SOFT TISSUES AND BONES: No acute osseous abnormality. No significant soft tissue finding. UPPER ABDOMEN: Incompletely imaged right lower calyx radiodensity measuring 9 mm suggesting a calculu s. IMPRESSION: No evidence of acute central pulmonary emboli. No suspicious intrathoracic findings.. Incidentally noted 9 mm probable calculus in the right lower renal calyx, incompletely imaged.
[2025-08-02] MEDS ORDERED: IBUPROFEN 200 MG TAB PO ONE (11:43)
[2025-08-02] MEDS ORDERED: DIAZEPAM 5 MG TABLET ONE (12:16)
--- NOTE | 2025-08-02 13:51 | ER ---
Nurse's Notes [facility] Name: Terry Villar Age: 84 yrs Sex: Female : 1940 Arrival Date: 08/02/2025 Time: 08:58 Bed 3 Private MD: Diagnosis: Chest pain, unspecified Presentation: 08/02 09:14 Chief complaint: Patient states: "I started having CP this morning around 4am. I had a mb9 recent heart cath 2 weeks ago.". Coronavirus screen: Vaccine status: Patient reports receiving the 2nd dose of the covid vaccine. Ebola Screen: No symptoms or risks identified at this time. Initial Sepsis Screen: Does the patient meet any 2 criteria? No. Patient's initial sepsis screen is negative. Does the patient have a suspected source of infection? No. Patient's initial sepsis screen is negative. Risk Assessment: Do you want to hurt yourself or someone else? Patient reports no desire to harm self or others. Onset of symptoms was August 02, 2025. 09:14 Acuity: BENITO 2 mb9 09:14 Method Of Arrival: Wheelchair mb9 Triage Assessment: 09:04 General: Appears uncomfortable, Behavior is cooperative. Pain: Complains of pain in mb9 chest Pain radiates to neck Pain currently is 4 out of 10 on a pain scale. Quality of pain is described as throbbing, Pain began suddenly, Is continuous, Aggravated by repositioning. EENT: No signs and/or symptoms were reported regarding the EENT system. Neuro: Lobo Agitation-Sedation Scale (RASS): 0 - Alert and Calm Level of Consciousness is awake, alert, obeys commands, Oriented to person, place, time, situation, Appropriate for age. Cardiovascular: Reports chest pain, Heart tones S1 S2 present Patient's skin is warm and dry. Rhythm is regular. Respiratory: Airway is patent Respiratory effort is even, unlabored, Respiratory pattern is regular, symmetrical, Breath sounds are clear bilaterally. Denies shortness of breath. GI: Abdomen is round non-distended. : No signs and/or symptoms were reported regarding the genitourinary system. Derm: Skin is fragile, is thin, Skin is dry, Skin is pale, Skin temperature is cool. Musculoskeletal: Range of motion: intact in all extremities. Historical: - Allergies: 09:16 Hydrocodone-Acetaminophen; mb9 09:16 prefers to take no narcs...make her ill; mb9 - PMHx: 09:16 Cancer; Hypothyroidism; shingles; Hypertension; mb9 - PSHx: 09:16 Appendectomy; bilateral knee replacement; masectomy; Total abdominal hysterectomy; mb9 - Immunization history:: Adult Immunizations up to date. - Infectious Disease History:: Denies. - Social history:: Smoking status: Patient denies any tobacco usage or history of. Screenin:18 [facility] ED Fall Risk Assessment (Adult) History of falling in the last 3 months, mb9 including since admission No falls in past 3 months (0 pts) Confusion or Disorientation No (0 pts) Intoxicated or Sedated No (0 pts) Impaired Gait No (0 pts) Mobility Assist Device Used No (0 pt) Altered Elimination No (0 pt) Score/Fall Risk Level 0 - 2 = Low Risk Oriented to surroundings, Maintained a safe environment, Educated pt \\T\\ family on fall prevention, incl call for assistance when getting out of bed. Abuse screen: Denies threats or abuse. Nutritional screening: No deficits noted. Tuberculosis screening: No symptoms or risk factors identified. Assessment: 09:17 Reassessment: see triage assessment. mb9 10:15 Reassessment: Patient appears in no apparent distress at this time. Patient and/or mb9 family updated on plan of care and expected duration. Pain level reassessed. Patient is alert, oriented x 3, equal unlabored respirations, skin warm/dry/pink. 11:15 Reassessment: No changes from previously documented assessment. Patient and/or family mb9 updated on plan of care and expected duration. Pain level reassessed. Patient is alert, oriented x 3, equal unlabored respirations, skin warm/dry/pink. 12:35 Reassessment: Patient appears in no apparent distress at this time. No changes from mb9 previously documented assessment. Patient and/or family updated on plan of care and expected duration. Pain level reassessed. Patient is alert, oriented x 3, equal unlabored respirations, skin warm/dry/pink. 14:13 Reassessment: No changes from previously documented assessment. Patient and/or family mb9 updated on plan of care and expected duration. Pain level reassessed. Patient is alert, oriented x 3, equal unlabored respirations, skin warm/dry/pink. Vital Signs: 09:14 BP 182 / 84; Pulse 62; Resp 18; Temp 98; Pulse Ox 100% ; Weight 86.18 kg; Height 5 ft. mb9 4 in. ; Pain 4/10; 11:44 BP 155 / 83; Pulse 70; Resp 18; Pulse Ox 100% on R/A; mb9 14:12 BP 149 / 79; Pulse 71; Resp 18; Pulse Ox 100% on R/A; mb9 09:14 Body Mass Index 32.61 (86.18 kg, 162.56 cm) mb9 09:14 Pain Scale: Adult mb9 ED Course: 09:00 Patient arrived in ED. bc6 09:00 Jose De Leon MD is Attending Physician. rn 09:00 EKG done, by ED staff, reviewed by Jose De Leon MD. mb9 09:06 Love Garcia, EDGAR is Primary Nurse. mb9 09:16 Triage completed. mb9 09:16 Arm band placed on. mb9 09:18 Missed attempt(s): 22 gauge in right forearm. Bleeding controlled, band aid applied, mb9 catheter tip intact. 09:18 Bed in low position. Call light in reach. Side rails up X 1. Provided Education on: mb9 press call light if needing anything. Client placed on continuous cardiac and pulse oximetry monitoring. NIBP monitoring applied. 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 09:31 Initial lab(s) drawn, by ED staff, sent to lab. Inserted saline lock: 24 gauge in right mb9 upper arm, using aseptic technique. Blood collected. Flushed with 10 mL NS. 09:35 Inserted saline lock: 22 gauge in right hand, using aseptic technique. aa5 09:45 XRAY Chest (1 view) In Process Unspecified. EDMS 10:25 Accessed peripheral vein via ultrasound, utilizing dynamic ultrasound technique 20g mb9 right upper arm Good blood return. Flushes easily. 10:36 CT Chest For PE Angio In Process Unspecified. EDMS 12:48 No provider procedures requiring assistance completed. mb9 13:49 Rishi Aleman MD is Referral Physician. rn 14:13 IV discontinued, intact, bleeding controlled, No redness/swelling at site. Pressure mb9 dressing applied. Administered Medications: 11:57 Drug: Ibuprofen PO 600 mg PO once Route: PO; mb9 12:14 Follow up: Response: No adverse reaction mb9 12:18 Drug: Diazepam PO 5 mg PO once Route: PO; mb9 14:14 Follow up: Response: No adverse reaction mb9 Medication: 09:18 VIS not applicable for this client. mb9 Outcome: 13:50 Discharge ordered by . rn 14:12 Discharged to home via wheelchair, with family, karla 14:12 Condition: stable 14:12 Discharge instructions given to patient, family, Instructed on discharge instructions, follow up and referral plans. Demonstrated understanding of instructions, follow-up care, 14:13 Patient left the ED. mb9 Signatures: Dispatcher [employer] EDMS Jose De Leon MD MD rn Calderon, Audri, RN RN aa5 Love Garcia RN RN mb9 Maria Del Carmen Chauhan6
--- NOTE | 2025-08-02 13:51 | EDPHYS ---
Physician Documentation [facility] Name: Terry Villar Age: 84 yrs Sex: Female : 1940 Arrival Date: 08/02/2025 Time: 08:58 Bed 3 Private MD: ED Physician Jose De Leon HPI: 08/02 09:22 This 84 yrs old Female presents to ER via Wheelchair with complaints of Chest Pain. rn 09:22 Patient reports chest pain, began this morning. States had heart cath 2 weeks ago with rn Dr. Aleman, reports 50% LAD lesion and 30% lesions x 2. No stent required this most recent cath. Patient states has been doing okay except for times of exertion and tachycardia which is what led to most recent As well as failed stress test. Patient states started with diffuse chest pain today, radiating up to the neck. No dyspnea. No fever or chills. Does not feel sick. No abdominal pain. No radiation to the back or tearing sensation.. Historical: - Allergies: 09:16 Hydrocodone-Acetaminophen; mb9 09:16 prefers to take no narcs...make her ill; mb9 - PMHx: 09:16 Cancer; Hypothyroidism; shingles; Hypertension; mb9 - PSHx: 09:16 Appendectomy; bilateral knee replacement; masectomy; Total abdominal hysterectomy; mb9 - Immunization history:: Adult Immunizations up to date. - Infectious Disease History:: Denies. - Social history:: Smoking status: Patient denies any tobacco usage or history of. ROS: 09:24 Constitutional: Negative for fever, chills, and weight loss, Cardiovascular: Positive rn for chest pain Respiratory: Negative for shortness of breath, cough, wheezing, and pleuritic chest pain, Abdomen/GI: Negative for abdominal pain, nausea, vomiting, diarrhea, and constipation, Back: Negative for injury and pain, MS/Extremity: Negative for injury and deformity, Skin: Negative for injury, rash, and discoloration, Neuro: Negative for headache, weakness, numbness, tingling, and seizure, Exam: 09:24 Constitutional: This is a well developed, well nourished patient who is awake, alert, rn appears anxious Cardiovascular: Regular rate and rhythm. No pulse deficits. Respiratory: No increased work of breathing, no retractions or nasal flaring. Abdomen/GI: Soft, non-tender MS/ Extremity: Pulses equal, no cyanosis. Neuro: Awake and alert, GCS 15 18:50 ECG was reviewed by the Attending Physician. rn Vital Signs: 09:14 BP 182 / 84; Pulse 62; Resp 18; Temp 98; Pulse Ox 100% ; Weight 86.18 kg; Height 5 ft. mb9 4 in. ; Pain 4/10; 11:44 BP 155 / 83; Pulse 70; Resp 18; Pulse Ox 100% on R/A; mb9 14:12 BP 149 / 79; Pulse 71; Resp 18; Pulse Ox 100% on R/A; mb9 09:14 Body Mass Index 32.61 (86.18 kg, 162.56 cm) mb9 09:14 Pain Scale: Adult mb9 MDM: 09:00 Medical Screening Exam initiated rn 13:47 Differential diagnosis: acute myocardial infarction, acute pericarditis, anxiety, rn coronary artery disease costochondritis, esophagitis, pleurisy, pneumothorax, pulmonary embolus. HEART Score: History: Slightly Suspicious (0), ECG: Non specific repolarization disturbance / LBTB / PM (1), Age: > or = 65 years (2), Risk Factors: > or = 3 Risk factors for atherosclerotic disease (2), Troponin: < or = 1 x Normal Limit (0), Total Score = 5. Data reviewed: vital signs, nurses notes, lab test result(s), EKG, radiologic studies, CT scan, plain films, and as a result, I will discharge patient. Independent interpretation of the following test(s) in the Emergency Department EKG: See my EKG interpretation above X-Ray: My interpretation is Chest x-ray images negative for pneumothorax or pneumonia per my interpretation. case monitor: rate is 70 beats/min, Rhythm is normal sinus rhythm, regular, with no ectopy, Interpretation: normal rate, normal rhythm. Care significantly affected by the following chronic conditions: Hypertension. Counseling: I had a detailed discussion with the patient and/or guardian regarding the historical points, exam findings, and any diagnostic results supporting the discharge/admit diagnosis, lab results, radiology results, the need for outpatient follow up, to return to the emergency department if symptoms worsen or persist or if there are any questions or concerns that arise at home. Response to treatment: Patient improved after Valium, and as a result, I will discharge patient. ED course: Patient with negative workup here, troponin negative x 2. CT PE protocol negative. No acute findings. Improved after Valium and Motrin. Recent heart cath did not show any significant blockages to warrant stent. Will discharge home with cardiology and PCP follow-up. Return precautions given and understood.. 08/02 09:00 Order name: Basic Metabolic Panel; Complete Time: 10:07 rn 08/02 09:00 Order name: CBC with Diff; Complete Time: 09:51 rn 08/02 09:00 Order name: NT PRO-BNP; Complete Time: 10:07 rn 08/02 09:00 Order name: PT-INR; Complete Time: 09:51 rn 08/02 09:00 Order name: Troponin HS; Complete Time: 10:07 rn 08/02 09:41 Order name: CBC Smear Scan; Complete Time: 09:51 EDMS 08/02 11:56 Order name: Troponin High Sensitivity; Complete Time: 12:45 rn 08/02 09:00 Order name: XRAY Chest (1 view); Complete Time: 10:07 rn 08/02 09:24 Order name: CT Chest For PE Angio; Complete Time: 11:33 rn 08/02 09:00 Order name: EKG; Complete Time: 09:00 rn 08/02 09:00 Order name: Cardiac monitoring; Complete Time: 09:23 rn 08/02 09:00 Order name: EKG - Nurse/Tech; Complete Time: 09:23 rn 08/02 09:00 Order name: IV Saline Lock; Complete Time: :23 rn 08/02 09:00 Order name: Labs collected and sent; Complete Time: :23 rn 08/02 09:00 Order name: O2 Per Protocol; Complete Time: :23 rn 08/02 09:00 Order name: O2 Sat Monitoring; Complete Time: :23 rn EC:50 Rate is 61 beats/min. Rhythm is regular. QRS [place] is Normal. PA interval is normal. QRS rn interval is normal. QT interval is normal. No Q waves. T waves are Normal. No ST changes noted. Clinical impression: NSR w/ Non-specific ST/T Changes. Interpreted by me. Reviewed by me. Administered Medications: 11:57 Drug: Ibuprofen PO 600 mg PO once Route: PO; mb9 12:14 Follow up: Response: No adverse reaction mb9 12:18 Drug: Diazepam PO 5 mg PO once Route: PO; mb9 14:14 Follow up: Response: No adverse reaction mb9 Disposition Summary: 08/02/25 13:50 Discharge Ordered Notes: Location: Home rn Problem: new rn Symptoms: have improved rn Condition: Stable rn Diagnosis - Chest pain, unspecified rn Followup: rn - With: Rishi Aleman MD - When: As needed - Reason: Recheck today's complaints, Re-evaluation by your physician Discharge Instructions: - Discharge Summary Sheet rn - Nonspecific Chest Pain, Adult rn Forms: - Medication Reconciliation Form rn - Antibiotic project management intern - Prescription Opioid Use rn - Patient Portal Instructions rn - Leadership Thank You Letter rn Signatures: Dispatcher [employer] Jose Aguilar MD MD rn Wilkerson, Mary Beth, RN RN 9
[2025-08-02 14:18] VITALS: TEMP 98; O2SAT 100
[2025-08-02 14:21] VITALS: BP 149/79
== END 2025-08-02 14:13 | disposition home or self-care (01) ==
LOC: ER 08:58
DX: R07.9 Chest pain, unspecified (principal); I10 Essential (primary) hypertension
CPT/HCPCS: 93005; 85025; 80048; 36415; 85610; 84484 ×2; 83880; 71275; 71045; 99285; Q9967